=== PATIENT | female | born 1980 | race Caucasian/White ===

== ENCOUNTER 2016-10-26 23:56 | Emergency (ER) | payer OTHER, MEDICAID ==
--- NOTE | 2016-10-27 00:44 | EDM.PDOC ---
ED HPI GENERAL MEDICAL PROBLEM - General Chief Complaint: General Stated Complaint: SURGERY COMPLICATIONS Time Seen by Provider: 10/27/16 00:25 Source of Information: Reports: Patient, Family History Limitations: Reports: No limitations - History of Present Illness INITIAL COMMENTS - FREE TEXT/NARRATIVE: 36-year-old female who had breast reconstruction surgery on October 16 has developed some fullness under the right axillary area near her surgical incision. She has no redness, fever, malaise, or warmth of the area. The fullness has developed slowly over the past day and a half to 2 days. Onset: gradual Location: Reports: chest, other (Right axillary area) Severity: mild Right Arm Pain Score (Numeric/FACES): 4 - Related Data Allergies Allergy/AdvReac Type Severity Reaction Status Date / Time meperidine Allergy Rash Verified 10/27/16 00:07 tuberculin, purified protein Allergy Other Verified 10/27/16 00:07 deriva [tuberculin,purif.prot.deriv.] hydrocodone bitartrate AdvReac Unknown Vomiting Verified 10/27/16 00:07 [From Vicodin] hydromorphone HCl AdvReac Unknown Vomiting Verified 10/27/16 00:07 [From Dilaudid] [place] (fruit) Allergy Severe Airway Uncoded 10/27/16 00:07 Tightness Home Meds: Home Meds Cyclobenzaprine [Flexeril] 10 mg PO TID PRN 11/21/15 [History] Ibuprofen [Motrin] 600 mg PO TID PRN 11/21/15 [History] traZODone 200 mg PO BEDTIME 11/21/15 [History] Ondansetron [Zofran ODT] 4 mg PO Q8H PRN 11/22/15 [History] traMADol HCl [Ultram] 50 mg PO Q6H PRN 11/22/15 [History] Acetaminophen [Tylenol Extra Strength] 1,000 mg PO TID PRN 10/27/16 [History] Aspirin [Abiquiu Aspirin] 81 mg PO DAILY 10/27/16 [History] Escitalopram [Lexapro] 10 mg PO DAILY 10/27/16 [History] Past Medical History Gastrointestinal History: Reports: Hemorrhoids 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: , 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 Other OB/BYN History: bilateral oophorectomy Musculoskeletal History: Reports: Other (see below) Other Musculoskeletal History: left chest/shoulder pain after fall Psychiatric History: Reports: Anxiety Hematologic History: Reports: Anemia Oncologic (Cancer) History: Reports: Breast Other Oncologic History: precancerous fibers Dermatologic History: Reports: Angiodema, Other (see below) Other Dermatologic History: left chest/axilla/arm edema after bilat mastectomy - Infectious Disease History Infectious Disease History: Reports: Chicken pox, Measles, Mumps - Past Surgical History Other HEENT Surgeries/Procedures: wisdom teeth removed GI Surgical History: Reports: Colonoscopy Female Surgical History: Reports: Breast reconstruction, Mastectomy, Salpingo -oophorectomy Other Female Surgeries/Procedures: Mastectomy October 2014. preventative for CA. Musculoskeletal Surgical History: Reports: Other (see below) Other Musculoskeletal Surgeries/Procedures:: right elbow surgery as child Oncologic Surgical History: Reports: Mastectomy Social & Family History - Family History Endocrine/Metabolic: Reports: Diabetes, type I, Diabetes, type II Oncologic: Reports: Breast, Leukemia, Lymphoma, Ovarian - Tobacco Use Smoking Status *Q: Never Smoker Second Hand Smoke Exposure: No - Caffeine Use Caffeine Use: Reports: Coffee, Soda, Tea - Alcohol Use Days Per Week of Alcohol Use: 0 - Recreational Drug Use Recreational Drug Use: No ED ROS GENERAL - Review of Systems Review Of Systems: See Below Constitutional: Denies: fever, chills HEENT: Reports: No symptoms Respiratory: Denies: shortness of breath, cough Cardiovascular: Denies: Chest pain GI/Abdominal: Denies: Abdominal pain Skin: Denies: bruising, erythema Neurological: Reports: no symptoms ED EXAM, GENERAL - Physical Exam Exam: See Below Exam Limited By: No limitations General Appearance: alert, no apparent distress Respiratory/Chest: no respiratory distress, lungs clear Extremities: other (The incision across the upper right chest into the right axillary area appears to be healing normally. There is some fullness but no significant fluctuance just above been under the incision. There is no warmth or redness. There is no significant discomfort.) Course - Vital Signs Last Recorded V/S: Last Vital Signs Temp 96.8 F 10/27/16 00:23 Pulse 86 10/27/16 00:23 Resp 16 10/27/16 00:23 BP 157/89 H 10/27/16 00:23 Pulse Ox 99 10/27/16 00:23 - Re-Assessments/Exams Free Text/Narrative Re-Assessment/Exam: 10/27/16 00:47 This patient likely has a postoperative seroma of the upper right chest and axillary area. I recommended she call her surgeon tomorrow to discuss whether an ultrasound of the area would be warranted or if she should just return to the clinic for a postoperative exam. I reassured her that it's not an urgent situation unless she develops a fever or increased pain Departure - Departure Time of Disposition: 01:09 Disposition: Home, Self-Care 01 Condition: good Clinical Impression: Seroma, postoperative Qualifiers: Surgical complication system/body Area: subcutaneous tissue Procedure type: non -dermatologic Qualified Code(s): L76.34 - Postprocedural seroma of skin and subcutaneous tissue following other procedure Instructions: Seroma Referrals: Amberly Simons CNM [Primary Care Provider] - Forms: ED Department Discharge Care Plan Goals: Your diagnosis is likely a postoperative seroma. Contact your surgeon tomorrow for further instructions such as ultrasound or clinical recheck. Return sooner if you develop redness or fever or increased pain.
[2016-10-27 02:03] VITALS: BP 157/89
== END 2016-10-27 00:50 | disposition home or self-care (01) ==
LOC: JP.ED 23:56
DX: L76.34 Postprocedural seroma of skin and subcutaneous tissue following other procedure (principal); Z88.8 Allergy status to other drugs, medicaments and biological substances; Z79.899 Other long term (current) drug therapy; Z79.82 Long term (current) use of aspirin; Z98.890 Other specified postprocedural states
CPT/HCPCS: 99283

== ENCOUNTER 2017-03-13 18:24 | Emergency (ER) | payer OTHER, MEDICAID ==
[2017-03-13] MEDS ORDERED: Ketorolac 60 MG/2 ML SDV IM ONE (18:58)
[2017-03-13] MEDS ORDERED: Ketorolac 60 MG/2 ML SDV ONE (19:00)
--- NOTE | 2017-03-13 19:02 | EDM.PDOC ---
ED HPI GENERAL MEDICAL PROBLEM - General Chief Complaint: Chest Pain Stated Complaint: CHEST PAINS Time Seen by Provider: 03/13/17 18:45 Source of Information: Reports: Patient, Family History Limitations: Reports: No Limitations - History of Present Illness INITIAL COMMENTS - FREE TEXT/NARRATIVE: 37-year-old female who had a sudden onset of left anterior and peristernal chest pain, very sharp and pleuritic in nature. She became vagal at work, lightheaded, pale and they checked her blood pressure and it was low so they sent her in. Her vitals have normalized, her O2 sats are normal and she is not short of breath but she still has waxing and waning very sharp left chest pain. It hurts to palpation and also hurts to take a breath. Her EKG on arrival was normal. Nausea but no vomiting. She had a bilateral mastectomy followed by breast reconstruction 4 months ago and has been doing well. Onset: Sudden Duration: Hour(s): (4 hours ago) Location: Reports: Chest Quality: Reports: Sharp Severity: Moderate Worsens with: Reports: Breathing, Other (Also worse with palpation), Movement Associated Symptoms: Reports: Diaphoresis (Was lightheaded and diaphoretic which has resolved), Other (Nausea) Left Chest Pain Score (Numeric/FACES): 7 - Related Data Allergies Allergy/AdvReac Type Severity Reaction Status Date / Time meperidine Allergy Rash Verified 03/13/17 18:36 tuberculin, purified protein Allergy Other Verified 03/13/17 18:36 deriva [tuberculin,purif.prot.deriv.] hydrocodone bitartrate AdvReac Unknown Vomiting Verified 03/13/17 18:36 [From Vicodin] hydromorphone HCl AdvReac Unknown Vomiting Verified 03/13/17 18:36 [From Dilaudid] [place] (fruit) Allergy Severe Airway Uncoded 10/27/16 00:07 Tightness Home Meds: Home Meds traZODone 200 mg PO BEDTIME 11/21/15 [History] Ondansetron [Zofran ODT] 4 mg PO Q8H PRN 11/22/15 [History] Escitalopram [Lexapro] 1 tab PO DAILY 03/13/17 [History] Past Medical History Gastrointestinal History: Reports: Hemorrhoids [employer]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: , 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 Other OB/BYN History: bilateral oophorectomy Musculoskeletal History: Reports: Fracture Other Musculoskeletal History: left chest/shoulder pain after fall Psychiatric History: Reports: Anxiety Hematologic History: Reports: Anemia, Blood Transfusion(s) Oncologic (Cancer) History: Reports: Breast Other Oncologic History: precancerous fibers Dermatologic History: Reports: Angiodema, Other (See Below) Other Dermatologic History: left chest/axilla/arm edema after bilat mastectomy - Infectious Disease History Infectious Disease History: Reports: Chicken Pox, Measles, Mumps - Past Surgical History Other HEENT Surgeries/Procedures: wisdom teeth removed GI Surgical History: Reports: Colonoscopy Female Surgical History: Reports: Breast Reconstruction, Mastectomy, Salpingo -Oophorectomy Musculoskeletal Surgical History: Reports: Other (See Below) Other Musculoskeletal Surgeries/Procedures:: elbow surgery Oncologic Surgical History: Reports: Mastectomy Social & Family History - Family History Endocrine/Metabolic: Reports: Diabetes, Type I, Diabetes, type II Oncologic: Reports: Breast, Leukemia, Lymphoma, Ovarian - Tobacco Use Smoking Status *Q: Never Smoker Second Hand Smoke Exposure: No - Caffeine Use Caffeine Use: Reports: Coffee, Soda, Tea - Alcohol Use Days Per Week of Alcohol Use: 0 - Recreational Drug Use Recreational Drug Use: No ED ROS GENERAL - Review of Systems Review Of Systems: See Below Constitutional: Reports: Malaise HEENT: Reports: No Symptoms Respiratory: Reports: Pleuritic Chest Pain. Denies: Shortness of Breath, Cough Cardiovascular: Reports: Chest Pain GI/Abdominal: Reports: Nausea. Denies: Abdominal Pain, Vomiting Musculoskeletal: Reports: No Symptoms Skin: Reports: Pallor, Diaphoresis Psychiatric: Reports: Anxiety ED EXAM, GENERAL - Physical Exam Exam: See Below Exam Limited By: No Limitations General Appearance: Alert, Anxious Eye Exam: Bilateral Eye: Normal Inspection Respiratory/Chest: No Respiratory Distress, Lungs Clear, Other (Her chest is exquisitely tender to even mild palpation along the left parasternal border across the left anterior chest. Her surgical incision looks excellent.) Cardiovascular: Regular Rate, Rhythm GI/Abdominal: Non-Tender Neurological: Alert, Oriented Psychiatric: Anxious Skin Exam: Warm, Dry EKG INTERPRETATION Rhythm: NSR Course - Vital Signs Last Recorded V/S: Last Vital Signs Temp 97.5 F 03/13/17 20:09 Pulse 92 03/13/17 20:09 Resp 15 03/13/17 20:09 BP 92/56 L 03/13/17 20:09 Pulse Ox 96 03/13/17 20:09 - Orders/Labs/Meds Orders: Active Orders 24 hr Category Date Time Status EKG Documentation Completion [RC] ASDIRECTED Care 03/13/17 18:58 Active Chest 2V [CR] Routine Exams 03/13/17 18:58 Taken EKG 12 Lead [EK] Routine Ther 03/13/17 18:58 Ordered Labs: Laboratory Tests 03/13/17 03/13/17 03/13/17 Range/Units 19:11 19:11 19:11 WBC 6.6 (4.5-11.0) K/uL RBC 4.72 (3.30-5.50) M/uL Hgb 12.9 (12.0-15.0) g/dL Hct 38.9 (36.0-48.0) % MCV 82 (80-98) fL MCH 27 (27-31) pg MCHC 33 (32-36) % Plt Count 250 (150-400) K/uL Neut % (Auto) 61 (36-66) % Lymph % (Auto) 26 (24-44) % [place] % (Auto) 10 H (2-6) % Eos % (Auto) 3 (2-4) % Baso % (Auto) 1 (0-1) % D-Dimer, Quantitative 184 (0.0-400.0) ng/mL Sodium 140 (140-148) mmol/L Potassium 3.8 (3.6-5.2) mmol/L Chloride 103 (100-108) mmol/L Carbon Dioxide 29 (21-32) mmol/L Anion Gap 7.9 (5.0-14.0) mmol/L BUN 12 (7-18) mg/dL Creatinine 1.0 (0.6-1.0) mg/dL Est Cr Clr Drug Dosing 71.41 mL/min Estimated GFR (MDRD) > 60 (>60) Glucose 116 H (74-106) mg/dL Calcium 9.0 (8.5-10.1) mg/dL Troponin I < 0.017 (0.000-0.056) ng/mL Meds: Medications Discontinued Medications Generic Name Dose Route Start Last Admin Trade Name Freq PRN Reason Stop Dose Admin Ketorolac Tromethamine 60 mg 03/13/17 18:58 03/13/17 19:01 Toradol IM 03/13/17 18:59 60 mg ONETIME ONE Administration Ketorolac Tromethamine Confirm 03/13/17 19:00 Toradol Administered 03/13/17 19:01 Dose 60 mg .ROUTE .[facility] ONE - Re-Assessments/Exams Free Text/Narrative Re-Assessment/Exam: 03/13/17 19:02 After the EKG was normal, the patient was reassured this likely is musculoskeletal or pleuritic and not cardiac. She was given an injection of Toradol 60 mg IM, a 2 view chest x-ray, CBC, BMP, troponin and d-dimer were obtained. 03/13/17 20:14 Two-view chest x-ray was normal, BMP troponin and d-dimer are all reassuring. Patient's pain improved after the Toradol. She was discharged with a diagnosis of chest wall pain and encouraged to continue with ibuprofen and return if worsening. Departure - Departure Time of Disposition: 20:27 Disposition: Home, Self-Care 01 Condition: Good Clinical Impression: Acute chest wall pain - Discharge Information Instructions: Chest Wall Pain, [id number] Referrals: Amberly Simons CNM [Primary Care Provider] - Forms: ED Department Discharge Care Plan Goals: A regular dose of ibuprofen along with Flexeril may be beneficial. Increase activity as tolerated and consider rechecking in 2-3 days if not improving satisfactorily. - My Orders Last 24 Hours: My Active Orders 03/13/17 18:58 EKG Documentation Completion [RC] ASDIRECTED Chest 2V [CR] Routine EKG 12 Lead [EK] Routine - Assessment/Plan Last 24 Hours: My Active Orders 03/13/17 18:58 EKG Documentation Completion [RC] ASDIRECTED Chest 2V [CR] Routine EKG 12 Lead [EK] Routine
[2017-03-13 20:11] VITALS: BP 92/56
--- NOTE | 2017-03-15 09:26 | CR ---
Chest 2V FINDINGS: The heart and vascular structures are normal in appearance. No infiltrates or effusions ar e demonstrated. The skeletal structures are unremarkable. IMPRESSION: Negative exam.
== END 2017-03-13 20:29 | disposition home or self-care (01) ==
LOC: JP.ED 18:24
DX: R07.89 Other chest pain (principal); F41.9 Anxiety disorder, unspecified; Z85.3 Personal history of malignant neoplasm of breast; Z90.721 Acquired absence of ovaries, unilateral; Z90.10 Acquired absence of unspecified breast and nipple; Z98.890 Other specified postprocedural states; Z79.899 Other long term (current) drug therapy; Z88.5 Allergy status to narcotic agent; Z88.8 Allergy status to other drugs, medicaments and biological substances; Z91.018 Allergy to other foods
CPT/HCPCS: 36415; 71020; 80048; 84484; 85025; 85379; 93005; 96372; 99285; J1885; 93010; 99284

== ENCOUNTER 2018-10-07 10:03 | Emergency (ER) | payer OTHER ==
[2018-10-07] MEDS ORDERED: Albuterol 0.083% 2.5 MG/3 ML Neb Soln NEB ONE ×2 (10:55→12:11)
--- NOTE | 2018-10-07 10:58 | EDM.PDOC ---
ED HPI GENERAL MEDICAL PROBLEM - General Chief Complaint: Respiratory Problem Stated Complaint: RESPIRATORY Time Seen by Provider: 10/07/18 10:56 Source of Information: Reports: Patient History Limitations: Reports: No Limitations - History of Present Illness INITIAL COMMENTS - FREE TEXT/NARRATIVE: pt arrived with pressure in her chest. She does have influ a which was diagnosed tue. She has a past history of breast Ca and her physian did not want her to gwet a flu shot. Onset: Gradual Duration: Day(s): Location: Reports: Chest Associated Symptoms: Reports: Chest Pain, Cough, Diaphoresis, Headaches, Malaise , Shortness of Breath Chest Pain Score (Numeric/FACES): 5 - Related Data Allergies Allergy/AdvReac Type Severity Reaction Status Date / Time meperidine Allergy Rash Verified 10/07/18 10:19 tuberculin, purified protein Allergy Other Verified 10/07/18 10:19 deriva [tuberculin,purif.prot.deriv.] hydrocodone bitartrate AdvReac Unknown Vomiting Verified 10/07/18 10:19 [From Vicodin] hydromorphone HCl AdvReac Unknown Vomiting Verified 10/07/18 10:19 [From Dilaudid] [place] (fruit) Allergy Severe Airway Uncoded 10/27/16 00:07 Tightness Home Meds: Home Meds traZODone 200 mg PO BEDTIME 11/21/15 [History] Ondansetron [Zofran ODT] 4 mg PO Q8H PRN 11/22/15 [History] Past Medical History HEENT History: Reports: Impaired Vision Gastrointestinal History: Reports: Hemorrhoids 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: , 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 Other HAND CANDY CUTTER History: bilateral oophorectomy Musculoskeletal History: Reports: Fracture Other Musculoskeletal History: left chest/shoulder pain after fall Psychiatric History: Reports: Anxiety Hematologic History: Reports: Anemia, Blood Transfusion(s) Oncologic (Cancer) History: Reports: Breast Other Oncologic History: precancerous fibers Dermatologic History: Reports: Other (See Below) Other Dermatologic History: left chest/axilla/arm edema after bilat mastectomy - Infectious Disease History Infectious Disease History: Reports: Chicken Pox, Measles, Mumps - Past Surgical History Other HEENT Surgeries/Procedures: wisdom teeth removed GI Surgical History: Reports: Colonoscopy Female Surgical History: Reports: Breast Reconstruction, Mastectomy, Salpingo -Oophorectomy Musculoskeletal Surgical History: Reports: Other (See Below) Other Musculoskeletal Surgeries/Procedures:: elbow surgery Oncologic Surgical History: Reports: Mastectomy Social & Family History - Family History Endocrine/Metabolic: Reports: Diabetes, Type I, Diabetes, type II Oncologic: Reports: Breast, Leukemia, Lymphoma, Ovarian - Tobacco Use Smoking Status *Q: Never Smoker - Caffeine Use Caffeine Use: Reports: Coffee, Soda, Tea - Recreational Drug Use Recreational Drug Use: No ED ROS GENERAL - Review of Systems Review Of Systems: See Below Constitutional: Reports: Fever, Chills, Weakness, Other (chest pressure. ) HEENT: Reports: Ear Pain, Other (pt has had alot of sdiscomfort in her ear.) Respiratory: Reports: Wheezing, Cough, Other ( fever) Cardiovascular: Reports: Chest Pain, Other ( She feels like someone is sitting ion her ches. ) Endocrine: Reports: No Symptoms GI/Abdominal: Reports: Other (Pt is not eating and drinking well) ED EXAM, GENERAL - Physical Exam Exam: See Below Free Text/Narrative:: Pt arrived feeling sob and feeling like there is pressure on her chest. Exam Limited By: No Limitations General Appearance: Alert, Anxious, Moderate Distress Ears: Normal TMs, Other ( small amount of fluid behind the drums. ) Nose: Normal Inspection Throat/Mouth: Normal Inspection Head: Atraumatic Neck: Normal Inspection Respiratory/Chest: No Respiratory Distress, Other (oxygen levels are good. ) Cardiovascular: Regular Rate, Rhythm GI/Abdominal: Soft, Non-Tender (Female) Exam: Deferred Rectal (Female) Exam: Deferred Back Exam: Normal Inspection Extremities: Normal Inspection Neurological: Alert, Oriented, Normal Cognition Psychiatric: Normal Affect Course - Vital Signs Last Recorded V/S: Last Vital Signs Temp 35.8 C 10/07/18 10:16 Pulse 73 10/07/18 12:38 Resp 22 H 10/07/18 12:38 BP 104/66 10/07/18 12:38 Pulse Ox 100 10/07/18 12:38 - Orders/Labs/Meds Orders: Active Orders 24 hr Category Date Time Status EKG Documentation Completion [RC] ASDIRECTED Care 10/12/18 06:17 Active EKG 12 Lead [EK] Routine Ther 10/12/18 06:16 Ordered Labs: Laboratory Tests 10/07/18 10/07/1810/07/19 Range/Units 11:03 11:03 11:13 WBC 5.2 (4.5-11.0) K/uL RBC 4.74 (3.30-5.50) M/uL Hgb 13.4 (12.0-15.0) g/dL Hct 40.9 (36.0-48.0) % MCV 86 (80-98) fL MCH 28 (27-31) pg MCHC 33 (32-36) % Plt Count 236 (150-400) K/uL Neut % (Auto) 56 (36-66) % Lymph % (Auto) 26 (24-44) % [place] % (Auto) 12 H (2-6) % Eos % (Auto) 5 H (2-4) % Baso % (Auto) 1 (0-1) % Sodium 140 (140-148) mmol/L Potassium 3.9 (3.6-5.2) mmol/L Chloride 105 (100-108) mmol/L Carbon Dioxide 26 (21-32) mmol/L Anion Gap 9.1 (5.0-14.0) mmol/L BUN 11 (7-18) mg/dL Creatinine 0.8 (0.6-1.0) mg/dL Est Cr Clr Drug Dosing 91.81 mL/min Estimated GFR (MDRD) > 60 (>60) Glucose 91 (74-106) mg/dL Calcium 9.1 (8.5-10.1) mg/dL Total Bilirubin 0.4 (0.2-1.0) mg/dL AST 27 D (15-37) U/L ALT 50 D (12-78) U/L Alkaline Phosphatase 77 (46-116) U/L Troponin I (0.000-0.056) ng/mL Total Protein 7.7 (6.4-8.2) g/dL Albumin 3.8 (3.4-5.0) g/dL Globulin 3.9 H (2.3-3.5) g/dL Albumin/Globulin Ratio 1.0 L (1.2-2.2) Urine Color Yellow Urine Appearance Clear Urine pH 5.0 (4.5-8.0) Ur Specific [place] 1.015 (1.008-1.030) Urine Protein Negative (NEGATIVE) mg/dL Urine Glucose (UA) Normal (NEGATIVE) mg/dL Urine Ketones Negative (NEGATIVE) mg/dL Urine Occult Blood Negative (NEGATIVE) Urine Nitrite Negative (NEGATIVE) Urine Bilirubin Negative (NEGATIVE) Urine Urobilinogen Normal (NORMAL) mg/dL Ur Leukocyte Esterase Negative (NEGATIVE) Urine RBC 0-5 (0-5) Urine WBC Not seen (0-5) Ur Epithelial Cells Few Amorphous Sediment Not seen Urine Bacteria Not seen Urine Mucus Not seen 10/07/18 Range/Units 11:44 WBC (4.5-11.0) K/uL RBC (3.30-5.50) M/uL Hgb (12.0-15.0) g/dL Hct (36.0-48.0) % MCV (80-98) fL MCH (27-31) pg MCHC (32-36) % Plt Count (150-400) K/uL Neut % (Auto) (36-66) % Lymph % (Auto) (24-44) % [place] % (Auto) (2-6) % Eos % (Auto) (2-4) % Baso % (Auto) (0-1) % Sodium (140-148) mmol/L Potassium (3.6-5.2) mmol/L Chloride (100-108) mmol/L Carbon Dioxide (21-32) mmol/L Anion Gap (5.0-14.0) mmol/L BUN (7-18) mg/dL Creatinine (0.6-1.0) mg/dL Est Cr Clr Drug Dosing mL/min Estimated GFR (MDRD) (>60) Glucose (74-106) mg/dL Calcium (8.5-10.1) mg/dL Total Bilirubin (0.2-1.0) mg/dL AST (15-37) U/L ALT (12-78) U/L Alkaline Phosphatase (46-116) U/L Troponin I < 0.017 (0.000-0.056) ng/mL Total Protein (6.4-8.2) g/dL Albumin (3.4-5.0) g/dL Globulin (2.3-3.5) g/dL Albumin/Globulin Ratio (1.2-2.2) Urine Color Urine Appearance Urine pH (4.5-8.0) Ur Specific [place] (1.008-1.030) Urine Protein (NEGATIVE) mg/dL Urine Glucose (UA) (NEGATIVE) mg/dL Urine Ketones (NEGATIVE) mg/dL Urine Occult Blood (NEGATIVE) Urine Nitrite (NEGATIVE) Urine Bilirubin (NEGATIVE) Urine Urobilinogen (NORMAL) mg/dL Ur Leukocyte Esterase (NEGATIVE) Urine RBC (0-5) Urine WBC (0-5) Ur Epithelial Cells Amorphous Sediment Urine Bacteria Urine Mucus Meds: Medications Discontinued Medications Generic Name Dose Route Start Last Admin Trade Name Freq PRN Reason Stop Dose Admin Albuterol 2.5 mg 10/07/18 10:55 10/07/18 11:08 Proventil Neb Soln NEB 10/07/18 10:56 2.5 mg ONETIME ONE Administration Albuterol 2.5 mg 10/07/18 12:11 10/07/18 12:30 Proventil Neb Soln NEB 10/07/18 12:12 2.5 mg ONETIME ONE Administration Sodium Chloride 1,000 mls @ 999 mls/hr 10/07/18 11:00 10/07/18 11:06 Normal Saline IV 999 mls/hr ASDIRECTED CHIP Administration Sodium Chloride 1,000 mls @ 999 mls/hr 10/07/18 12:15 10/07/18 12:39 Normal Saline IV 999 mls/hr ASDIRECTED CHIP Administration - Re-Assessments/Exams Free Text/Narrative Re-Assessment/Exam: 10/07/18 12:12 pt has a normal wbc, her fluid balance looks ok. She has a normal chest xray. Pt is very wheezy. She has a dry productive cough which the neb seemed to help. Her ekg was normal and trop was normal. Departure - Departure Time of Disposition: 13:10 Disposition: Home, Self-Care 01 Condition: Fair Clinical Impression: Influenza A, Bronchospasm - Discharge Information Instructions: Influenza, Adult, [id number], Bronchospasm, Adult, [id number] Referrals: Amberly Simons CNM [Primary Care Provider] - Forms: ED Department Discharge Care Plan Goals: push fluids, cool mist humidifier, albuterol neb q6h, tylenol and motrin for body aches and fever. - My Orders Last 24 Hours: My Active Orders 10/12/18 06:16 EKG 12 Lead [EK] Routine 10/12/18 06:17 EKG Documentation Completion [RC] ASDIRECTED - Assessment/Plan Last 24 Hours: My Active Orders 10/12/18 06:16 EKG 12 Lead [EK] Routine 10/12/18 06:17 EKG Documentation Completion [RC] ASDIRECTED
[2018-10-07] MEDS ORDERED: Sodium Chloride 0.9% 1,000 ML IV SCH ×2 (11:00→12:15)
--- NOTE | 2018-10-07 11:44 | CRLCR ---
CHEST 2 VIEWS INDICATION: Cough. Influenza. Chest pressure. IMPRESSION: Normal heart size and vascular pattern. Lungs are clear. No pneumothorax or pleural effusion. Dictated by Fareed Villasenor MD @ Oct 07 2018 11:40AM Signed by Dr. Fareed Villasenor @ Oct 07 2018 11:42AM
[2018-10-07 12:39] VITALS: BP 104/66
== END 2018-10-07 14:08 | disposition home or self-care (01) ==
LOC: JP.ED 10:03
DX: J10.1 Influenza due to other identified influenza virus with other respiratory manifestations (principal); J98.01 Acute bronchospasm; Z88.8 Allergy status to other drugs, medicaments and biological substances; Z85.3 Personal history of malignant neoplasm of breast
CPT/HCPCS: 36415; 71046; 80053; 81001; 84484; 85025; 93005; 94640; 96360; 96361; 99285; J7030

== ENCOUNTER 2019-04-13 08:40 | Day surgery (SDC) | payer OTHER ==
[~2019-04-13 08:40] MED LIST: Dexamethasone 4 MG/ML SDV ONE; Glycopyrrolate 0.2 MG/ML 5 ML MDV ONE; Isosulfan Blue 5 ML SDV ONE; Neostigmine Methylsulfate 1 MG/ML 5 ML Syringe ONE; Ondansetron 4 MG/2 ML SDV ONE; Propofol 200 MG/20 ML SDV ONE; Rocuronium 50 MG/5 ML Vial ONE; Succinylcholine 200 MG/10 ML MDV ONE; fentaNYL 250 MCG/5 ML SDV ONE
[2019-04-13] MEDS ORDERED: Acetaminophen 500 MG Tab PO ONE (09:00)
[2019-04-13] MEDS ORDERED: Dextrose 5%-Lactated Ringers 1,000 ML IV SCH (09:00)
[2019-04-13] MEDS ORDERED: ceFAZolin 2 GM in Sodium Chloride 0.9% 100 ML IV ONE (09:00)
[2019-04-13] MEDS ORDERED: ceFAZolin 2 GM in Premix Bag 1 BAG IV ONE (09:00)
[2019-04-13] MEDS ORDERED: traMADol 50 MG Tab PO ONE (12:07)
[2019-04-13] MEDS ORDERED: diphenhydrAMINE 50 MG/ML SDV IVPUSH ONE (12:27)
[2019-04-13 13:39] VITALS: BP 103/73
--- NOTE | 2019-04-19 15:15 | OR ---
DATE OF PROCEDURE: 04/13/2019 SURGEON: Cain Naidu MD PREOPERATIVE DIAGNOSIS: Suspicious clinical mass of right lateral chest wall. POSTOPERATIVE DIAGNOSES: Suspicious clinical mass of right lateral chest wall (benign by frozen section). OPERATIVE PROCEDURE: Excision of suspicious soft tissue mass of right lateral chest wall with frozen section ([id number]). ANESTHESIA: General. INDICATIONS FOR PROCEDURE: This is a 39-year-old with history of bilateral mastectomies done for one side having an invasive carcinoma and the other side being prophylactically performed due to patient's BRCA II mutation. Radiologic workup thus far has been negative, but with the discomfort present and some underlying concern for possible recurrent malignancy, this could be excised with a reasonable margin. Potential risks including bleeding, infection, and need for additional treatment should a malignancy be identified were all gone over, and the patient wishes to proceed. DETAILS OF PROCEDURE: The patient was taken to the operating room and placed in a supine position. The area of concern had been previously marked out with the patient in the supine position as well. After general endotracheal anesthesia was induced, the reconstructed right breast and adjacent chest wall were then prepped and draped. The area of concern was more or less in the far lateral aspect of the mastectomy incision. This contained a linear nodular firmness. A wide elliptical incision was then made around that and this extended down to including removal of rim of muscle and fascia. The specimen was then removed intact, and the length of the area of concern was measured out at 9 cm. Frozen section was obtained, which showed a picture of scar formation but nothing suspicious for tumor per se. Dissection was then inspected. No other palpable areas of firmness or concern were identified. The incision was then closed with 2 layers of 3-0 Vicryl stitch deep and nicko for the skin. Dressing was applied, and the patient was taken to the recovery room in satisfactory condition. Cain Naidu MD /[id number]
== END 2019-04-13 13:30 | disposition home or self-care (01) ==
LOC: JP.SDS 08:40
PROVIDERS: ATTEND Surgery
DX: L90.5 Scar conditions and fibrosis of skin (principal); F43.10 Post-traumatic stress disorder, unspecified; F41.9 Anxiety disorder, unspecified; F32.9 Major depressive disorder, single episode, unspecified; Z88.5 Allergy status to narcotic agent; Z88.1 Allergy status to other antibiotic agents; Z88.8 Allergy status to other drugs, medicaments and biological substances; Z90.13 Acquired absence of bilateral breasts and nipples; Z85.3 Personal history of malignant neoplasm of breast; Z80.3 Family history of malignant neoplasm of breast; Z80.41 Family history of malignant neoplasm of ovary
CPT/HCPCS: 21554; 36415; 80053; 85027; 86300; 88305; A9270; J0330; J1100; J1200; J2405; J2704; J2710; J3010; J3490; J7042; Q9968

== ENCOUNTER 2019-07-14 15:25 | Emergency (ER) | payer OTHER, SELFPAY ==
[2019-07-14 15:46] VITALS: BP 114/74; PULSE 71
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
== END 2019-07-14 16:32 | disposition home or self-care (01) ==
LOC: JP.ED 15:25
DX: S29.012A Strain of muscle and tendon of back wall of thorax, initial encounter (principal); S76.011A Strain of muscle, fascia and tendon of right hip, initial encounter; S80.02XA Contusion of left knee, initial encounter; F41.9 Anxiety disorder, unspecified; Z88.1 Allergy status to other antibiotic agents; Z88.5 Allergy status to narcotic agent; Z88.7 Allergy status to serum and vaccine; Z88.8 Allergy status to other drugs, medicaments and biological substances; Z91.018 Allergy to other foods; V43.51XA Car driver injured in collision with sport utility vehicle in traffic accident, initial encounter; Y92.410 Unspecified street and highway as the place of occurrence of the external cause
CPT/HCPCS: 99283

== ENCOUNTER 2020-10-03 08:41 | Emergency (ER) | payer OTHER, SELFPAY ==
[2020-10-03] MEDS ORDERED: Sodium Chloride 0.9% 10 ML Syringe FLUSH PRN (10:23)
[2020-10-03] MEDS ORDERED: Ketorolac 30 MG/ML SDV IVPUSH ONE (10:23)
[2020-10-03] MEDS ORDERED: Ondansetron 4 MG/2 ML SDV IVPUSH ONE (10:23)
[2020-10-03] MEDS ORDERED: Dexamethasone 4 MG/ML SDV IVPUSH ONE (10:23)
[2020-10-03] MEDS ORDERED: Sodium Chloride 0.9% 1,000 ML IV ONE (10:23)
[2020-10-03] MEDS ORDERED: Magnesium Sulfate/Water 2 GM/50 ML BAG IV ONE (11:24)
--- NOTE | 2020-10-03 11:33 | EDM.PDOC ---
ED HPI GENERAL MEDICAL PROBLEM - General Chief Complaint: Fever Stated Complaint: ILL THUAN Time Seen by Provider: 10/03/20 09:08 Source of Information: Reports: Patient, Old Records History Limitations: Reports: No Limitations - History of Present Illness INITIAL COMMENTS - FREE TEXT/NARRATIVE: Adwoa is a 40-year-old female presenting to the ED for evaluation of low-grade fever, chills, body aches, severe headache, nausea and vomiting. Patient was in her usual state of health when she saw her primary care provider yesterday for follow-up of varicella zoster on the face. This is the second episode of varicella that the patient has had since June 2020. The rash has improved, however, she still on gabapentin for the pain. Patient states that she awoke with a severe headache and is prone to migraines. She has vomited 4 times last night and several times dry heaving today. At this point the headache is global. The patient reports that she had a fever of 100 F at home. She has been chilling all day. The patient did receive 2 vaccinations in the clinic yesterday including a Tdap booster and the varicella vaccine for varicella zoster. Her significant other reports that she had a syncopal episode today when trying to get up to go to the bathroom. She did fall causing injury to her right buttock, right knee, and right ankle. There is no obvious deformity and mild tenderness to palpation. The clinic notes were reviewed from yesterday's visit including labs that were obtained. Of significance the patient does have hyperlipidemia with a total cholesterol of 225, and HDL of 68 and an LDL of 135. Her triglycerides are 111. Her CBC and comprehensive metabolic panel are unremarkable. Headache Pain Score (Numeric/FACES): 6 - Related Data Allergies Allergy/AdvReac Type Severity Reaction Status Date / Time clindamycin Allergy Other Verified 07/14/19 16:22 fentanyl Allergy Vomiting Verified 10/03/20 08:54 hydrocodone Allergy Vomiting Verified 10/03/20 08:54 meperidine Allergy Rash Verified 07/14/19 16:22 tuberculin, purified protein Allergy Other Verified 07/14/19 16:22 deriva [tuberculin,purif.prot.deriv.] venlafaxine Allergy Other Verified 07/14/19 16:22 hydrocodone bitartrate AdvReac Unknown Vomiting Verified 07/14/19 16:22 [From Vicodin] hydromorphone HCl AdvReac Unknown Vomiting Verified 07/14/19 16:22 [From Dilaudid] resighini (fruit) Allergy Severe Airway Uncoded 07/14/19 16:22 Tightness calcium oxysulfide Allergy Other Uncoded 07/14/19 16:22 Home Meds: Home Meds traZODone 200 mg PO BEDTIME 11/21/15 [History] Ondansetron [Zofran ODT] 4 mg PO Q8H PRN 11/22/15 [History] Cyclobenzaprine [Flexeril] 10 mg PO TID PRN 04/12/19 [History] Rizatriptan [Maxalt LOUNGE [employer] ATTENDANT] 10 mg PO ASDIRECTED PRN 04/12/19 [History] traMADol [Ultram] 50 mg PO Q6H PRN 04/12/19 [History] Fluocinonide [Lidex 0.05% Crm] 30 gm TOP BID 10/03/20 [History] Gabapentin [Neurontin] 300 mg PO BEDTIME 10/03/20 [History] Past Medical History HEENT History: Reports: Impaired Vision Cardiovascular History: Reports: None Respiratory History: Reports: None Gastrointestinal History: Reports: Hemorrhoids Genitourinary History: Reports: None [employer] History: Reports: , Spontaneous Other [employer]TER History: bilateral oophorectomy Musculoskeletal History: Reports: Fracture Other Musculoskeletal History: left chest/shoulder pain after fall Neurological History: Reports: Migraines Psychiatric History: Reports: Anxiety Endocrine/Metabolic History: Reports: None Hematologic History: Reports: None, Anemia, Blood Transfusion(s) Oncologic (Cancer) History: Reports: Breast Other Oncologic History: precancerous fibers Dermatologic History: Reports: Other (See Below) Other Dermatologic History: left chest/axilla/arm edema after bilat mastectomy - Infectious Disease History Infectious Disease History: Reports: Chicken Pox, Influenza, Shingles - Past Surgical History Other HEENT Surgeries/Procedures: wisdom teeth removed GI Surgical History: Reports: Colonoscopy, EGD Female Surgical History: Reports: Breast Reconstruction, D&C, Mastectomy, Salpingo-Oophorectomy Other Female Surgeries/Procedures: Mastectomy October 2014. preventative for CA. Neurological Surgical History: Reports: None Musculoskeletal Surgical History: Reports: Other (See Below) Other Musculoskeletal Surgeries/Procedures:: elbow surgery Oncologic Surgical History: Reports: Biopsy of Breast, Mastectomy Social & Family History - Family History Endocrine/Metabolic: Reports: Diabetes, Type I, Diabetes, type II Oncologic: Reports: Breast, Leukemia, Lymphoma, Ovarian - Tobacco Use Tobacco Use Status *Q: Never Tobacco User - Caffeine Use Caffeine Use: Reports: Coffee, Soda - Recreational Drug Use Recreational Drug Use: No ED ROS GENERAL - Review of Systems Review Of Systems: See Below Constitutional: Reports: No Symptoms HEENT: Reports: No Symptoms Respiratory: Reports: No Symptoms Cardiovascular: Reports: No Symptoms Endocrine: Reports: No Symptoms GI/Abdominal: Reports: Nausea, Vomiting : Reports: No Symptoms Musculoskeletal: Reports: Other (Right buttock pain, right calf pain, and right ankle pain.) Skin: Reports: No Symptoms Neurological: Reports: Dizziness, Headache (Global headache with throbbing quality and photophobia.), Syncope (A witnessed syncopal episode when the patient got up to go to the bathroom.) Psychiatric: Reports: Anxiety Hematologic/Lymphatic: Reports: No Symptoms Immunologic: Reports: No Symptoms ED EXAM, GENERAL - Physical Exam Exam: See Below Exam Limited By: No Limitations General Appearance: Alert, Anxious, Moderate Distress Eye Exam: Bilateral Eye: EOMI, PERRL, Other (Photophobia) Nose: Normal Inspection, Normal Mucosa, No Blood, Other (No tenderness with palpation over the sinuses.) Throat/Mouth: Normal Inspection, Normal Lips, Normal Teeth, Normal Gums, Normal Oropharynx, Normal Voice Head: Atraumatic, Normocephalic Neck: Normal Inspection, Supple, Non-Tender, Full Range of Motion Respiratory/Chest: No Respiratory Distress, Lungs Clear, Normal Breath Sounds Cardiovascular: Normal Peripheral Pulses, Regular Rate, Rhythm, No Murmur Peripheral Pulses: 2+: Radial (L), Radial (R), Posterior Tibial (L), Posterior Tibial (R) GI/Abdominal: Normal Bowel Sounds, Soft, Non-Tender. No: Guarding, Rigid, Rebound Back Exam: Normal Inspection, Full Range of Motion, Other (Mild tenderness with palpation over the right gluteus magdy.) Extremities: Normal Inspection, Normal Range of Motion, Other (Mild tenderness with palpation over the mid right calf. No evidence for bruising. Tenderness with the right ankle with normal range of motion. No deformity.) Neurological: Alert, Oriented, CN II-XII Intact, Normal Cognition, No Motor/Sensory Deficits Psychiatric: Normal Affect, Normal Mood, Anxious Skin Exam: Warm, Dry, Intact, Normal Color. No: Ecchymosis Lymphatic: No Adenopathy Course - Vital Signs Last Recorded V/S: Last Vital Signs Temp 100.0 C H 10/03/20 08:45 Pulse 93 10/03/20 12:59 Resp 18 10/03/20 12:59 BP 102/54 L 10/03/20 12:59 Pulse Ox 95 10/03/20 12:59 - Orders/Labs/Meds Orders: Active Orders 24 hr Category Date Time Status Sodium Chloride 0.9% [Saline Flush] Med 10/03/20 10:23 Active 10 ml FLUSH ASDIRECTED PRN Saline Lock Insert [OM.PC] Routine Oth 10/03/20 10:23 Ordered Medication Orders Sodium Chloride (Saline Flush) 10 ml FLUSH ASDIRECTED PRN PRN Reason: Keep Vein Open Last Admin: 10/03/20 11:50 Dose: 10 ml Documented by: PREILOR Labs: Laboratory Tests 10/03/20 10/03/20 10/03/20 Range/Units 10:40 10:40 11:32 WBC 6.0 (4.5-11.0) K/uL RBC 4.58 (3.30-5.50) M/uL Hgb 13.2 (12.0-15.0) g/dL Hct 40.2 (36.0-48.0) % MCV 88 (80-98) fL MCH 29 (27-31) pg MCHC 33 (32-36) % Plt Count 235 (150-400) K/uL Neut % (Auto) 78 H (36-66) % Lymph % (Auto) 12 L (24-44) % Mitchell % (Auto) 10 H (2-6) % Eos % (Auto) 0 L (2-4) % Baso % (Auto) 0 (0-1) % Sodium 141 (140-148) mmol/L Potassium 4.1 (3.6-5.2) mmol/L Chloride 104 (100-108) mmol/L Carbon Dioxide 25 (21-32) mmol/L Anion Gap 11.7 (5.0-14.0) mmol/L BUN 12 (7-18) mg/dL Creatinine 0.9 (0.6-1.0) mg/dL Est Cr Clr Drug Dosing 74.02 mL/min Estimated GFR (MDRD) > 60 (>60) Glucose 103 (74-106) mg/dL Calcium 8.7 (8.5-10.1) mg/dL Total Bilirubin 0.5 D (0.2-1.0) mg/dL AST 22 (15-37) U/L ALT 46 D (12-78) U/L Alkaline Phosphatase 76 (46-116) U/L C-Reactive Protein 2.22 H (0.0-0.3) mg/dL Total Protein 7.2 (6.4-8.2) g/dL Albumin 3.6 (3.4-5.0) g/dL Globulin 3.6 H (2.3-3.5) g/dL Albumin/Globulin Ratio 1.0 L (1.2-2.2) SARS CoV-2 RNA Rapid ONEAL Negative Meds: Medications Generic Name Dose Route Start Last Admin Trade Name Frelisa PRN Reason Stop Dose Admin Sodium Chloride 10 ml 10/03/20 10:23 10/03/20 11:50 Saline Flush FLUSH 10 ml ASDIRECTED PRN Administration Keep Vein Open Discontinued Medications Generic Name Dose Route Start Last Admin Trade Name Kareem PRN Reason Stop Dose Admin Dexamethasone 4 mg 10/03/20 10:23 10/03/20 10:38 Decadron IVPUSH 10/03/20 10:24 4 mg ONETIME ONE Administration Sodium Chloride 1,000 mls @ 999 mls/hr 10/03/20 10:23 10/03/20 10:34 Normal Saline IV 10/03/20 11:23 999 mls/hr .BOLUS ONE Administration Magnesium Sulfate 2 gm in 50 mls @ 25 mls/hr 10/03/20 11:24 10/03/20 11:40 Magnesium Sulfate In Water 2 Gm/50 Ml IV 10/03/20 13:23 25 mls/hr ONETIME ONE Administration Ketorolac Tromethamine 30 mg 10/03/20 10:23 10/03/20 10:42 Toradol IVPUSH 10/03/20 10:24 30 mg ONETIME ONE Administration Ondansetron HCl 4 mg 10/03/20 10:23 10/03/20 10:37 Zofran IVPUSH 10/03/20 10:24 4 mg ONETIME ONE Administration Tramadol HCl 50 mg 10/03/20 13:05 10/03/20 13:15 Ultram PO 10/03/20 13:06 50 mg ONETIME ONE Administration - Re-Assessments/Exams Free Text/Narrative Re-Assessment/Exam: 10/03/20 11:38 Adwoa is a 40-year-old female presenting to the ED for evaluation of low-grade fever, chills, body aches, severe headache, nausea and vomiting, and vasovagal syncope. Patient has a history significant for migraine headache and vasovagal syncope. She did receive 2 vaccinations yesterday for Tdap and varicella zoster. She recently had a second bout of zoster on the face with the first being in June and the second being 3 weeks ago. The patient started having nausea and vomiting last night and had 4 bilious emesis. She went to bed and awoke this morning with a severe headache. She states that the headache is similar to her previous migraine headaches. While getting ready to go to the bathroom. The patient got up and had a syncopal episode on the way to the washroom. She had no loss of bowel or bladder control. It was witnessed by her who states that she fell onto her right side. She is complaining of pain in the right buttock and right calf and ankle. There is no obvious deformity to either of these so we did not proceed with x-rays of those. We did proceed with a CT of the brain because of the severe headache. We initiated migraine treatment with IV normal saline 1 L, Toradol 30 mg IV, Zofran 4 mg IV, and dexamethasone 4 mg IV. Patient states that she had no relief from this cocktail so we added magnesium 2 g IV. Labs were reviewed and show a normal CBC but elevation in her C-reactive protein at 2.32. Her comprehensive metabolic panel is unremarkable. 10/03/20 13:[address] of the head. There is no acute abnormalities identified including no evidence for hemorrhage, mass-effect, or midline shift. The patient has had some improvement of her headache with the magnesium, but still is complaining about 5 out of 10 pain so we will give her a dose of her tramadol 50 mg p.o. to see if this gets her more comfortable. She is allergic to most other opiates including fentanyl, hydrocodone, hydromorphone, and meperidine so her options are markedly limited for treating her pain beyond the tramadol. It is likely that most of her symptoms are due to the recent vaccination including her low-grade fever, body aches, and resulting vasovagal syncope. After the tramadol the patient will likely be able to go home. Indications to return to the ED were discussed. Departure - Departure Time of Disposition: 13:44 Disposition: Home, Self-Care 01 Condition: Good Clinical Impression: Post-vaccination fever, Myalgia, Right calf pain Migraine headache without aura Qualifiers: Status migrainosus presence: without status migrainosus Intractability: intractable Qualified Code(s): G43.019 - Migraine without aura, intractable, without status migrainosus Nausea and vomiting Qualifiers: Vomiting type: bilious vomiting Qualified Code(s): R11.14 - Bilious vomiting Contusion of buttock Qualifiers: Encounter type: initial encounter Qualified Code(s): S30.0XXA - Contusion of lower back and pelvis, initial encounter - Discharge Information *PRESCRIPTION DRUG MONITORING PROGRAM REVIEWED*: Yes *COPY OF PRESCRIPTION DRUG MONITORING REPORT IN PATIENT MARIO: No Instructions: Migraine Headache, [id number], Nausea and Vomiting, Adult, Fever, Adult, [id number], Contusion, [id number] Referrals: PCP,None [Primary Care Provider] - Forms: ED Department Discharge Care Plan Goals: Your symptoms are likely related to your 2 vaccinations he received yesterday inducing a low-grade fever and flulike symptoms. Your COVID-19 test is negative. Your blood work is unremarkable for an acute infection but you do have elevation in your inflammatory markers likely due to the mediation of your immune system responding to the vaccinations. The CT of your brain was unremarkable for any worrisome findings. Your symptoms are likely triggering a migraine type headache which we have tried to treat with a combination of medications. I recommend that she go home and rest in a quiet, dark area to allow the medication is to fully resolve your symptoms. Your syncopal episode is likely due to your vasovagal syncope and is related to the body aches stimulating the vagus nerve. I would encourage you to push plenty of fluids today which should help with the vasovagal syncope. Because of the nausea and vomiting, I would recommend that you take small amounts of fluid at a time usually limited to 2 to 3 ounces every 15 minutes. I would also recommend that it be at room temperature and not hot or cold as these will sit in your stomach until the temperature normalizes. That could result in increased nausea and recurrence of your vomiting. Please take your Zofran as needed. In addition, you may continue to use your tramadol for pain. Sepsis Event Note (ED) - Evaluation Sepsis Screening Result: Possible Sepsis Risk Current Stage of Sepsis: Ruled Out Reason for Ruling Out Sepsis: Sepsis is ruled out by patient having low-grade fever, normotensive, and a relatively normal exam. She does however have significant anxiety which is likely related to her tachycardia. - Focused Exam Vital Signs: Vital Signs Temp Pulse Resp BP Pulse Ox 10/03/20 12:59 93 18 102/54 L 95 10/03/20 08:45 100.0 C H 97 20 104/56 L 98 - Problem List & Annotations (1) Migraine headache without aura SNOMED Code(s): 82583248 Code(s): G43.009 - MIGRAINE W/O AURA, NOT INTRACTABLE, W/O STATUS MIGRAINOSUS Status: Acute Priority: High Current Visit: Yes Qualifiers: Status migrainosus presence: without status migrainosus Intractability: intractable Qualified Code(s): G43.019 - Migraine without aura, intractable, without status migrainosus (2) Myalgia SNOMED Code(s): 32412323 Code(s): M79.10 - MYALGIA, UNSPECIFIED SITE Status: Acute Priority: High Current Visit: Yes (3) Nausea and vomiting SNOMED Code(s): 83212474 Code(s): R11.2 - NAUSEA WITH VOMITING, UNSPECIFIED Status: Acute Priority: High Current Visit: Yes Qualifiers: Vomiting type: bilious vomiting Qualified Code(s): R11.14 - Bilious vomiting (4) Post-vaccination fever SNOMED Code(s): 432973350692455 Code(s): R50.83 - POSTVACCINATION FEVER Status: Acute Priority: High Current Visit: Yes (5) Contusion of buttock SNOMED Code(s): 71071136 Code(s): S30.0XXA - CONTUSION OF LOWER BACK AND PELVIS, INITIAL ENCOUNTER Status: Acute Priority: Medium Current Visit: Yes (6) Right calf pain SNOMED Code(s): 457259306 Code(s): M79.661 - PAIN IN RIGHT LOWER LEG Status: Acute Priority: Medium Current Visit: Yes - Problem List Review Problem List Initiated/Reviewed/Updated: Yes - My Orders Last 24 Hours: My Active Orders 10/03/20 10:23 Sodium Chloride 0.9% [Saline Flush] 10 ml FLUSH ASDIRECTED PRN Saline Lock Insert [OM.PC] Routine - Assessment/Plan Last 24 Hours: My Active Orders 10/03/20 10:23 Sodium Chloride 0.9% [Saline Flush] 10 ml FLUSH ASDIRECTED PRN Saline Lock Insert [OM.PC] Routine
[2020-10-03 13:00] VITALS: BP 102/54; PULSE 93
--- NOTE | 2020-10-03 13:03 | CT ---
Head wo Cont CLINICAL HISTORY: Headache COMPARISON: 2015 TECHNIQUE: Transverse scans were obtained from the base of the skull through the vertex without IV contrast on a multislice, multidetector CT scanner. Auto dosage reduction and iterative reconstruction techniques employed. FINDINGS: No focal abnormal parenchymal density is identified. There is no mass effect, hemorrhage, or extraaxial collection. The basal cisterns and sulci over the convexities are normal. The ventricles are normal for age. IMPRESSION: No acute intracranial process or significant change since 2014
[2020-10-03] MEDS ORDERED: traMADol 50 MG Tab PO ONE (13:05)
== END 2020-10-03 14:05 | disposition home or self-care (01) ==
LOC: JP.ED 08:41
DX: S30.0XXA Contusion of lower back and pelvis, initial encounter (principal); R11.2 Nausea with vomiting, unspecified; G43.019 Migraine without aura, intractable, without status migrainosus; R50.83 Postvaccination fever; M79.10 Myalgia, unspecified site; M79.661 Pain in right lower leg; Z88.1 Allergy status to other antibiotic agents; Z88.4 Allergy status to anesthetic agent; Z88.5 Allergy status to narcotic agent; Z88.8 Allergy status to other drugs, medicaments and biological substances; Z91.018 Allergy to other foods; Z79.899 Other long term (current) drug therapy; Z20.822 Contact with and (suspected) exposure to COVID-19; W19.XXXA Unspecified fall, initial encounter
CPT/HCPCS: 36415; 70450; 70450-26; 80053; 85025; 86140; 96365; 96366; 96374; 96375; 99283; 99285-25; A9270-GY; J1100; J1885; J2405; J3475; J7030; U0002

== ENCOUNTER 2021-04-25 08:30 | Day surgery (SDC) | payer MEDICAID ==
[~2021-04-25 08:30] MED LIST changes: -Dexamethasone 4 MG/ML SDV ONE; -Glycopyrrolate 0.2 MG/ML 5 ML MDV ONE; -Isosulfan Blue 5 ML SDV ONE; -Neostigmine Methylsulfate 1 MG/ML 5 ML Syringe ONE; -Ondansetron 4 MG/2 ML SDV ONE; -Propofol 200 MG/20 ML SDV ONE; -Rocuronium 50 MG/5 ML Vial ONE; +Ropivacaine 50 ML, dexAMETHasone 8 MG, EPINEPHrine 0.4 MG, Sodium Chloride 0.9% 27.6 ML NERVRT SCH; +Sodium Chloride 0.9% 1,000 ML IV SCH; -Succinylcholine 200 MG/10 ML MDV ONE; -fentaNYL 250 MCG/5 ML SDV ONE
[2021-04-25] MEDS ORDERED: Ondansetron 4 MG/2 ML SDV ONE (08:39)
[2021-04-25] MEDS ORDERED: Succinylcholine 200 MG/10 ML MDV ONE (08:39)
[2021-04-25] MEDS ORDERED: Dexamethasone 4 MG/ML SDV ONE (08:39)
[2021-04-25] MEDS ORDERED: Glycopyrrolate 0.2 MG/ML 5 ML MDV ONE (08:39)
[2021-04-25] MEDS ORDERED: Rocuronium 50 MG/5 ML Vial ONE (08:39)
[2021-04-25] MEDS ORDERED: Propofol 200 MG/20 ML SDV ONE (08:39)
[2021-04-25] MEDS ORDERED: fentaNYL 250 MCG/5 ML SDV ONE (08:39)
[2021-04-25] MEDS ORDERED: Neostigmine Methylsulfate 1 MG/ML 5 ML Syringe ONE (08:39)
[2021-04-25] MEDS ORDERED: metroNIDAZOLE/Normal Saline 500 MG in Premix Bag 1 BAG IV ONE (08:40)
[2021-04-25] MEDS ORDERED: ceFAZolin 2 GM in Premix Bag 1 BAG IV ONE (08:40)
[2021-04-25] MEDS ORDERED: Albuterol/Ipratropium 3.0-0.5 MG/3 ML Neb Soln NEB ONE (09:38)
[2021-04-25] MEDS ORDERED: Scopolamine 1.5 MG Transdermal Patch TOP SCH (10:00)
[2021-04-25] MEDS: Bupivacaine 0.5% 50 ML MDV ONE ×2 (10:04→10:25)
[2021-04-25] MEDS: Lidocaine 1% with EPINEPHrine 1:100,000 50 ML MDV ONE ×2 (10:04→10:25)
[2021-04-25] MEDS ORDERED: Docusate Sodium 100 MG Cap PO PRN (10:21)
[2021-04-25] MEDS ORDERED: Zolpidem 5 MG Tab PO PRN (10:21)
[2021-04-25] MEDS ORDERED: hydrOXYzine HCL 100 MG/2 ML SDV IM PRN (10:21)
[2021-04-25] MEDS ORDERED: Benzocaine/Cetylpyridinium/Menthol Lozenge MUCMEM PRN (10:21)
[2021-04-25] MEDS ORDERED: oxyCODONE 5 MG Tab PO PRN (10:22)
[2021-04-25] MEDS ORDERED: Morphine 2 MG/ML SYRINGE IVPUSH PRN (10:23)
[2021-04-25] MEDS ORDERED: diphenhydrAMINE 50 MG/ML SDV ONE (10:38)
[2021-04-25] MEDS ORDERED: fentaNYL 100 MCG/2 ML SDV ONE (10:46)
[2021-04-25] MEDS ORDERED: hydrOXYzine HCL 100 MG/2 ML SDV IM ONE (11:06)
[2021-04-25 13:55] VITALS: BP 119/68; PULSE 96
[2021-04-25] MEDS ORDERED: SCOPOLAMINE PATCH CHECK TOP SCH (15:00)
--- NOTE | 2021-04-28 11:11 | OR ---
DATE OF PROCEDURE: 04/25/2021 SURGEON: Jacobo Donnelly MD PROCEDURE: Laparoscopic cholecystectomy. PREOPERATIVE DIAGNOSIS: Cholecystitis. POSTOPERATIVE DIAGNOSIS: Cholecystitis. RISKS: Risks, benefits, alternatives, and limitations including but not limited to infection, bleeding, perforation, false positives, false negatives, cystic duct leaks, common bile duct injuries, possibility of open surgery, injury to intestines, and other risks not listed here were explained to the patient and she wished to proceed. PROCEDURE IN DETAIL: The patient was placed in supine position. A midline vertical incision was made approximately 1 cm in size due to previous abdominal surgery and concern for scarring. A drop test was performed without abnormality. This was followed by an Optiview trocar, which was entered. No evidence of enterotomy or injury. An additional 10 and 2 5 mm ports were entered under direct visualization. The gallbladder was retracted cephalad. The infundibulum was retracted inferolaterally. Using blunt dissection, a "clear view" of the gallbladder was obtained with some single pulsatile structure entering the gallbladder and a single non-pulsatile structure entering the gallbladder. These were subsequently clipped x3 and transected. The remaining one-third of the gallbladder bed was removed off the gallbladder fossa without difficulty. This was delivered through a superior port without difficulty. The abdomen was reinsufflated, irrigated with 1 L of irrigation liquid, subsequently removed. The pressure was dropped to 7. No abnormal bleeding was noted, nor any bleeding was noted. The entry point was inspected for enterotomy or injury, none was noted. The air was removed. The wounds were closed with 3-0 Vicryl and 4-0 Vicryl in interrupted running fashion. Dermabond was applied after irrigation. The patient tolerated the procedure well. Jacobo Donnelly MD /[id number]
--- NOTE | 2021-04-28 11:16 | OR ---
DATE OF PROCEDURE: 04/25/2021 SURGEON: Jacobo Donnelly MD PROCEDURES: 1. Bilateral transversus abdominis plane blocks. 2. Bilateral rectus sheath blocks. COMPLICATION: None. THREAD SEPARATOR: None. RISKS: Risks, benefits, alternatives, and limitations including, but not limited to infection, bleeding, injury to abdominal structures were all explained to the patient and she wished to proceed. PROCEDURE IN DETAIL: The patient was placed in supine position. The right transversus plane was identified first. Using 13 megahertz ultrasound probe, the needle was advanced to the transversus plane and 20% of the solution was injected. This was then performed on the other side respectively. The bilateral rectus sheaths were also identified and injected in the posterior plane near the peritoneum also under direct visualization. All 4 procedures were performed in the same manner, same fashion, same technique, in the same sequence using the same equipment. At no point or time was the peritoneum crossed nor was the needle blindly advanced. The patient tolerated the procedure well. Jacobo Donnelly MD /[id number]
== END 2021-04-25 14:40 | disposition home or self-care (01) ==
LOC: JP.SDS 08:30 → JP.MS 10:21 → JP.SDS 14:40
PROVIDERS: ATTEND Surgery
DX: K81.1 Chronic cholecystitis (principal); E66.9 Obesity, unspecified; G47.00 Insomnia, unspecified; Z98.890 Other specified postprocedural states; Z01.812 Encounter for preprocedural laboratory examination; Z20.822 Contact with and (suspected) exposure to COVID-19; Z68.35 Body mass index [BMI] 35.0-35.9, adult
CPT/HCPCS: 36415; 80053; 88304; A9270-GY; J0171; J0330; J0690; J1100; J1200; J2405; J2704; J2710; J2795; J3010; J3410; J3490; J7030; U0002

== ENCOUNTER 2021-04-28 08:23 | Emergency (ER) | payer MEDICAID ==
[2021-04-28 09:25] VITALS: BP 120/57; PULSE 104
[2021-04-28] MEDS ORDERED: Sodium Chloride 0.9% 10 ML Syringe FLUSH PRN (10:00)
[2021-04-28] MEDS ORDERED: Acetaminophen 500 MG Tab PO ONE (10:08)
--- NOTE | 2021-04-28 10:10 | EDM.PDOC ---
ED HPI GENERAL MEDICAL PROBLEM - General Chief Complaint: General Stated Complaint: SURGERY 04/25 TEMP Time Seen by Provider: 04/28/21 09:50 Source of Information: Reports: Patient, Old Records, RN History Limitations: Reports: No Limitations - History of Present Illness INITIAL COMMENTS - FREE TEXT/NARRATIVE: 41 yo female went home from this hospital 3 d ago after an admission for cholecystectomy. Yesterday she developed a dry cough and fever. Is not vaccinated for Covid. Denies abdominal pain. No sore throat or runny nose. No rash. No dysuria. Onset: Gradual Onset Date: 04/27/21 Duration: Day(s): (1+), Getting Worse Location: Reports: Chest, Generalized Quality: Reports: Other (pain not reported) Severity: Moderate Improves with: Reports: None Worsens with: Reports: Other (time) Context: Reports: Other (See HPI) Associated Symptoms: Reports: Cough, Fever/Chills, Malaise. Denies: Headaches, Nausea/Vomiting, Rash, Shortness of Breath Treatments RN ANESTHETIST: Reports: Other (see below) (none) Head Pain Score (Numeric/FACES): 7 - Related Data Allergies Allergy/AdvReac Type Severity Reaction Status Date / Time clindamycin Allergy Other Verified 04/28/21 09:26 fentanyl Allergy Vomiting Verified 04/28/21 09:26 hydrocodone Allergy Vomiting Verified 04/28/21 09:26 meperidine Allergy Rash Verified 04/28/21 09:26 morphine Allergy Hallucinati Verified 04/28/21 09:26 ons oxycodone Allergy Vomiting Verified 04/28/21 09:26 tuberculin, purified protein Allergy Other Verified 04/28/21 09:26 deriva [tuberculin,purif.prot.deriv.] venlafaxine Allergy Other Verified 04/28/21 09:26 hydrocodone bitartrate AdvReac Unknown Vomiting Verified 04/28/21 09:26 [From Vicodin] hydromorphone HCl AdvReac Unknown Vomiting Verified 04/28/21 09:26 [From Dilaudid] kletsel dehe wintun (fruit) Allergy Severe Airway Uncoded 04/28/21 09:26 Tightness calcium oxysulfide Allergy Other Uncoded 04/28/21 09:26 Home Meds: Home Meds traZODone 200 mg PO BEDTIME 11/21/15 [History] Ondansetron [Zofran ODT] 4 mg PO Q8H PRN 11/22/15 [History] Cyclobenzaprine [Flexeril] 10 mg PO TID PRN 04/12/19 [History] Rizatriptan [Maxalt [employer]OP[employer]] 10 mg PO ASDIRECTED PRN 04/12/19 [History] traMADol [Ultram] 50 mg PO Q6H PRN 04/12/19 [History] Gabapentin [Neurontin] 300 mg PO BEDTIME 10/03/20 [History] valACYclovir HCl [Valacyclovir] 1,000 mg PO TID 04/25/21 [History] Past Medical History HEENT History: Reports: Impaired Vision Cardiovascular History: Reports: None Respiratory History: Reports: None Gastrointestinal History: Reports: Hemorrhoids Genitourinary History: Reports: None DIRECTOR OF [employer]CILLARY SERVICES History: Reports: , Spontaneous Other DIRECTOR OF ANCILLARY SERVICES History: bilateral oophorectomy Musculoskeletal History: Reports: Fracture Other Musculoskeletal History: left chest/shoulder pain after fall Neurological History: Reports: Migraines Psychiatric History: Reports: Anxiety Endocrine/Metabolic History: Reports: None Hematologic History: Reports: None, Anemia, Blood Transfusion(s) Oncologic (Cancer) History: Reports: Breast Other Oncologic History: precancerous fibers Dermatologic History: Reports: Other (See Below) Other Dermatologic History: left chest/axilla/arm edema after bilat mastectomy - Infectious Disease History Infectious Disease History: Reports: Chicken Pox, Influenza, Shingles - Past Surgical History Other HEENT Surgeries/Procedures: wisdom teeth removed GI Surgical History: Reports: Cholecystectomy, Colonoscopy, EGD Female Surgical History: Reports: Breast Reconstruction, D&C, Mastectomy, Salpingo-Oophorectomy Other Female Surgeries/Procedures: Mastectomy October 2014. preventative for CA. Neurological Surgical History: Reports: None Musculoskeletal Surgical History: Reports: Other (See Below) Other Musculoskeletal Surgeries/Procedures:: elbow surgery Oncologic Surgical History: Reports: Biopsy of Breast, Mastectomy Social & Family History - Family History Family Medical History: No Pertinent Family History Endocrine/Metabolic: Reports: Diabetes, Type I, Diabetes, type II Oncologic: Reports: Breast, Leukemia, Lymphoma, Ovarian - Tobacco Use Tobacco Use Status *Q: Never Tobacco User - Caffeine Use Caffeine Use: Reports: None - Recreational Drug Use Recreational Drug Use: No ED ROS GENERAL - Review of Systems Review Of Systems: See Below Constitutional: Reports: No Symptoms HEENT: Reports: No Symptoms Respiratory: Reports: Cough. Denies: Shortness of Breath, Sputum, Hemoptysis Cardiovascular: Reports: No Symptoms GI/Abdominal: Reports: No Symptoms : Reports: No Symptoms Musculoskeletal: Reports: No Symptoms Skin: Reports: No Symptoms ED EXAM, GENERAL - Physical Exam Exam: See Below Exam Limited By: No Limitations General Appearance: Alert, WD/WN, No Apparent Distress Eye Exam: Bilateral Eye: Normal Inspection Ears: Normal External Exam, Normal Canal, Hearing Grossly Normal, Normal TMs Ear Exam: Bilateral Ear: Auricle Normal, Canal Normal, TM normal Nose: Normal Inspection, No Blood Throat/Mouth: Normal Inspection, Normal Lips, Normal Oropharynx, Normal Voice, No Airway Compromise Head: Atraumatic, Normocephalic Neck: Normal Inspection Respiratory/Chest: No Respiratory Distress, Lungs Clear, Normal Breath Sounds, No Accessory Muscle Use Cardiovascular: Regular Rate, Rhythm, No Edema, Tachycardia GI/Abdominal: Soft, Other (wounds, surgical, are clean without signs of infection) Back Exam: Normal Inspection Extremities: Normal Inspection, Normal Range of Motion, Non-Tender, No Pedal Edema Neurological: Alert, Oriented, CN II-XII Intact, Normal Cognition, No Motor/Sensory Deficits Psychiatric: Normal Affect, Normal Mood Skin Exam: Warm, Dry, Intact, Normal Color, No Rash Course - Vital Signs Last Recorded V/S: Last Vital Signs Temp 38.2 C H 04/28/21 09:23 Pulse 104 H 04/28/21 09:23 Resp 18 04/28/21 09:23 BP 120/57 L 04/28/21 09:23 Pulse Ox 95 04/28/21 09:23 - Orders/Labs/Meds Orders: Active Orders 24 hr Category Date Time Status CORONAVIRUS COVID-19 ONEAL [MOLEC] Stat Lab 04/28/21 10:11 Ordered Sodium Chloride 0.9% [Saline Flush] Med 04/28/21 10:00 Active 10 ml FLUSH ASDIRECTED PRN Saline Lock Insert [OM.PC] Routine Oth 04/28/21 10:00 Ordered Medication Orders Sodium Chloride (Sodium Chloride 0.9% 10 Ml Syringe) 10 ml FLUSH ASDIRECTED PRN PRN Reason: Keep Vein Open Labs: Laboratory Tests 09/06/21 Range/Units 10:14 WBC 5.4 (4.5-11.0) K/uL RBC 4.80 (3.30-5.50) M/uL Hgb 13.4 (12.0-15.0) g/dL Hct 40.4 (36.0-48.0) % MCV 84 (80-98) fL MCH 28 (27-31) pg MCHC 33 (32-36) % Plt Count 217 (150-400) K/uL Meds: Medications Generic Name Dose Route Start Last Admin Trade Name Freq PRN Reason Stop Dose Admin Sodium Chloride 10 ml 04/28/21 10:00 Sodium Chloride 0.9% 10 Ml Syringe FLUSH ASDIRECTED PRN Keep Vein Open Discontinued Medications Generic Name Dose Route Start Last Admin Trade Name Freq PRN Reason Stop Dose Admin Acetaminophen 1,000 mg 04/28/21 10:08 Acetaminophen 500 Mg Tab PO 04/28/21 10:09 ONETIME ONE Departure - Departure Time of Disposition: 10:30 Disposition: Home, Self-Care 01 Condition: Fair Clinical Impression: COVID-19, At high risk for complication of COVID-19 Clinical Impression: (Ruled Out): At moderate risk for complication of COVID-19 - Discharge Information *PRESCRIPTION DRUG MONITORING PROGRAM REVIEWED*: Not Applicable *COPY OF PRESCRIPTION DRUG MONITORING REPORT IN PATIENT MARIO: Not Applicable Instructions: COVID-19 Frequently Asked Questions Referrals: Jacobo Donnelly MD [Primary Care Provider] - Forms: ED Department Discharge Additional Instructions: Take acetaminophen 1000 mg every 6 hrs for fever control. Isolate yourself and wash your hands often to reduce the risk of spread for the next 9 days. Return t omorrow for BAM(immunoglobulin IV infusion) to reduce the risk of serious complications from Covid. Consider supplementing with Zinc 50 mg daily and vitamin D 4000 U daily if not already doing so. Consider taking a baby aspirin daily while ill with Covid. F/U with your provider as needed. Sepsis Event Note (ED) - Evaluation Sepsis Screening Result: Possible Sepsis Risk - Focused Exam Vital Signs: Vital Signs Temp Pulse Resp BP Pulse Ox 04/28/21 09:23 38.2 C H 104 H 18 120/57 L 95 - My Orders Last 24 Hours: My Active Orders 04/28/21 10:00 Sodium Chloride 0.9% [Saline Flush] 10 ml FLUSH ASDIRECTED PRN Saline Lock Insert [OM.PC] Routine 04/28/21 10:11 CORONAVIRUS COVID-19 ONEAL [MOLEC] Stat - Assessment/Plan Last 24 Hours: My Active Orders 04/28/21 10:00 Sodium Chloride 0.9% [Saline Flush] 10 ml FLUSH ASDIRECTED PRN Saline Lock Insert [OM.PC] Routine 04/28/21 10:11 CORONAVIRUS COVID-19 ONEAL [MOLEC] Stat
== END 2021-04-28 10:39 | disposition home or self-care (01) ==
LOC: JP.ED 08:23
DX: U07.1 COVID-19 (principal); Z90.49 Acquired absence of other specified parts of digestive tract; Z88.1 Allergy status to other antibiotic agents; Z88.8 Allergy status to other drugs, medicaments and biological substances; Z88.5 Allergy status to narcotic agent; Z91.018 Allergy to other foods
CPT/HCPCS: 36415; 85027; 87635; 99283; A9270; U0002

== ENCOUNTER 2023-06-23 09:28 | Emergency (ER) | payer MEDICAID ==
[2023-06-23] MEDS ORDERED: Sodium Chloride 0.9% 10 ML Syringe FLUSH PRN (09:29)
[2023-06-23 09:38] LABS: BASOPHILS ABSOLUTE AUTO 0.05 K/uL (0.00-0.10); BASOPHILS PERCENT AUTO 0.9 % (0.1-1.3); EOSINOPHILS ABSOLUTE AUTO 0.08 K/uL (0.00-0.40); EOSINOPHILS PERCENT AUTO 1.4 % (0.0-5.4); HEMATOCRIT 39.3 % (34.3-46.0); HEMOGLOBIN 13.5 g/dL (11.2-15.5); IMMATURE GRAN PERCENT AUTO 0.2 % (0.0-0.7); LYMPHOCYTES ABSOLUTE AUTO 2.02 K/uL (0.8-3.3); LYMPHOCYTES PERCENT AUTO 36.1 % (11.4-47.7); MEAN CORPUSCULAR HEMOGLOBIN 29.2 pg (31.6-35.5); MEAN CORPUSCULAR HGB CONC 34.4 g/dL (31.6-35.5); MEAN CORPUSCULAR VOLUME 84.9 fL (81.4-99.0); MONOCYTES ABSOLUTE AUTO 0.41 K/uL (0.20-0.90); MONOCYTES PERCENT AUTO 7.3 % (3.3-12.6); NEUTROPHILS ABSOLUTE AUTO 3.02 K/uL (1.0-7.6); NEUTROPHILS PERCENT AUTO 54.1 % (40.0-78.1); PLATELET COUNT,PLT 276 K/uL (130-375); RED BLOOD CELL COUNT 4.63 M/uL (3.77-5.24); WHITE BLOOD CELL COUNT,WBC 5.6 K/uL (3.2-11.0)
[2023-06-23 09:42] LABS: IMMATURE GRAN ABSOLUTE AUTO 0.01 K/uL (0.00-0.23)
[2023-06-23] MEDS ORDERED: Ketorolac 30 MG/ML SDV IVPUSH ONE (09:44)
[2023-06-23] MEDS ORDERED: LORazepam 2 MG/ML SDV IVPUSH ONE ×2 (09:44→09:49)
[2023-06-23] MEDS ORDERED: Ondansetron 4 MG/2 ML SDV IVPUSH ONE (09:46)
[2023-06-23 10:00] LABS: INR 0.9; PROTHROMBIN TIME 9.5 sec (9.2-10.6)
[2023-06-23 10:02] LABS: CALCIUM 9.1 mg/dL (8.5-10.1); CREATININE 0.9 mg/dL (0.6-1.0); EST CRCL DRUG DOSING (CG) 71.78 mL/min; POTASSIUM,K 4.2 mmol/L (3.6-5.2); TROPONIN I HIGH SENSITIVITY 5.8 pg/mL (<=60.3)
[2023-06-23 10:05] LABS: ANION GAP 13.2 mmol/L (5.0-14.0)
[2023-06-23] MEDS ORDERED: Iopamidol 755 Mg/ML 100 ML Bottle IV SCH (10:45)
[2023-06-23] MEDS ORDERED: Sodium Chloride 0.9% 75 ML IV SCH (10:45)
[2023-06-23 11:05] VITALS: BP 104/72; PULSE 73
== END 2023-06-23 11:50 | disposition home or self-care (01) ==
LOC: JP.ED 09:28
DX: R07.89 Other chest pain (principal); Z20.822 Contact with and (suspected) exposure to COVID-19; Z85.3 Personal history of malignant neoplasm of breast; Z88.5 Allergy status to narcotic agent; Z91.018 Allergy to other foods; Z88.8 Allergy status to other drugs, medicaments and biological substances
CPT/HCPCS: 36415; 70450; 71045; 71275; 80048; 82800; 83605; 83735; 84484; 85025; 85379; 85610; 85730; 87635; 93005; 96374; 96375; 99285; J1885; J2060; J2405; J3490; Q9967; U0002